=== PATIENT | female | born 1950 | race Caucasian/White ===

== ENCOUNTER 2019-01-08 08:28 | Outpatient (CLI) | payer MEDICARE, OTHER | END 2019-01-08 23:59 | disposition home or self-care (01) | LOC: CFH 08:28 | PROVIDERS: ATTEND Nurse Practitioner | DX: Z12.31 Encounter for screening mammogram for malignant neoplasm of breast (principal); R10.9 Unspecified abdominal pain | CPT/HCPCS: 76700; 77067 ==

== ENCOUNTER 2019-01-16 08:27 | Outpatient (CLI) | payer MEDICARE, OTHER | END 2019-01-16 23:59 | disposition home or self-care (01) | LOC: CFH 08:27 | PROVIDERS: ATTEND Nurse Practitioner | DX: Z13.820 Encounter for screening for osteoporosis (principal); Z78.0 Asymptomatic menopausal state | CPT/HCPCS: 77080 ==

== ENCOUNTER 2019-01-24 09:48 | Outpatient (CLI) | payer MEDICARE, OTHER | END 2019-01-24 23:59 | disposition home or self-care (01) | LOC: CFH 09:48 | PROVIDERS: ATTEND Nurse Practitioner | DX: N28.1 Cyst of kidney, acquired (principal); N20.0 Calculus of kidney | CPT/HCPCS: 74178; Q9967 ==

== ENCOUNTER → 2019-08-12 | Outpatient (CLI) | payer MEDICARE, OTHER | END | disposition home or self-care (01) | LOC: RAD 07:30 | PROVIDERS: ATTEND Nurse Practitioner | DX: K21.9 Gastro-esophageal reflux disease without esophagitis (principal) | CPT/HCPCS: 74220 ==